=== PATIENT | female | born 1980 | race Caucasian/White ===

== ENCOUNTER 2017-07-07 00:22 | Day surgery (SDC) | payer OTHER ==
[2014-03-25 10:50] VITALS: Ht 162.6 cm; Wt 70.3 kg
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
[~2017-07-07] VITALS: Ht 162.6 cm; Wt 70.3 kg
[~2017-07-07 00:22] MED LIST: ACE3 PO; DOXY-179 PO; IBU600 PO; IBU800 PO; IBUP800T37 PO; KETO10TA PO; LOR5/325 PO; METR-1 PO; MOM PO; MULT-1335 PO; PER PO; PREN-127 PO; PREN-67 PO; RELACOR
[2017-07-07 06:11] VITALS: BP 111/72
[2017-07-07 06:14] LABS: PLATELET COUNT, AUTOMATED 330 K/uL (150-450)
[2017-07-07] MEDS ORDERED: FAMOTIDINE 20 MG TAB PO ONE (06:30)
[2017-07-07] MEDS ORDERED: LIDOCAINE/SOD BICARB 8.4% SYR ID ONE (06:30)
[2017-07-07] MEDS ORDERED: MIDAZOLAM 2 MG/2 ML VIAL IVP PRN (06:30)
[2017-07-07] MEDS ORDERED: cefOXitin/DEX(*) 2GM/50ML PREM 50 ML IVPB ONE (06:30)
[2017-07-07] MEDS ORDERED: NORMOSOL R SOLN(*) 1000 ML BAG 1,000 ML IV PRN (06:30)
[2017-07-07] MEDS ORDERED: CELECOXIB 200 MG CAP PO ONE (06:30)
[2017-07-07] MEDS ORDERED: ROPIVACAINE 0.2% 20 ML VIAL ONE (06:47)
[2017-07-07] MEDS ORDERED: fentaNYL CITR 100 MCG/2 ML AMP ONE ×3 (07:16→09:09)
[2017-07-07] MEDS ORDERED: LIDOCAINE MPF 1% 5 ML VIAL ONE (07:17)
[2017-07-07] MEDS ORDERED: PROPOFOL EMUL(*) 10MG/ML 20 ML 60 ML ONE (07:17)
[2017-07-07] MEDS ORDERED: DEXAMETHASONE SOD 4 MG/ML VIAL ONE (07:30)
[2017-07-07] MEDS ORDERED: ONDANSETRON 4 MG/2 ML VIAL ONE (07:31)
[2017-07-07] MEDS ORDERED: BUPIVACAIN 0.25% INJ 50ML VIAL ONE (07:32)
--- NOTE | 2017-07-07 07:34 | Post Operative Note ---
Operative Note - SENIOR ERP CONSULTANT Operative Day Date: July 07, 2017 Time: 07:52 Physicians Surgeon: PETER Anesthesia: ARNOLDO Diagnosis Pre-Op Diagnosis: SUBCUTANEOUS TISSUE MASS Post-Op Diagnosis: SAME Procedure Findings: RIGHT INNER THIGH CREASE MASS [id number] Procedure(s): EXCISIONAL BIOPSY Complications: 0 Fluids Fluids: 400 CC NR IV Estimated Blood Loss: MINIMAL Dictated Date OP Note Dictated: July 07, 2017 Time OP Note Dictated: 08:31 Copies to: CATRINA GREEN MD, JOHN MD July 07, 2017 07:34
[2017-07-07] MEDS ORDERED: IBUP800T37 PO (07:35)
[2017-07-07] MEDS ORDERED: HYDR2TAB4 PO (07:35)
--- NOTE | 2017-07-07 07:37 | OB/GYN Discharge Summary ---
Discharge Summary Reason for Hosp/Final Diag: (1) Mass of subcutaneous tissue Hospital Course & Plan: EXCISIONAL BIOPSY OF MASS PERFORMED NO COMPLICATIONS Weight (Pounds): 155 Result Diagram: 07/07/17604 Condition: Improved Discharge: Home, Self Intermediate Meds Active Scripts Ibuprofen (IBUPROFEN) 800 Mg Tablet, 1 TAB PO Q8H, #30 TAB 0 Refills Take with food every 8 hours. Prov:CATRINA ROMAN MD 07/07/17 Hydromorphone Hcl (HYDROMORPHONE HCL) 2 Mg Tablet, 2-4 MG PO Q4H for PAIN, #20 TAB 0 Refills Prov:CATRINA ROMAN MD 07/07/17 Ibuprofen (IBUPROFEN) 800 Mg Tablet, 1 TAB PO Q8H for pain, #40 TAB 0 Refills Prov:RIKY SOTO MD 03/26/14 Reported Medications Multivitamin With Minerals (MULTIPLE VITAMIN) 1 Each Tablet, 1 EACH PO DAILY, TAB 06/30/17 Discontinued Reported Medications Vits W-Ca,Fe,Fa(<1MG) ( Vitamin) 1 Tab Tablet, 1 TAB PO DAILY, 0 Refills 04/06/11 Discontinued Scripts Oxycodone/Acetaminophen (OXYCODONE/ACETAMINOPHEN 5MG/325 MG) 5 Mg/325 Mg Tab, 1- 2 TAB PO Q4H for pain, #30 TAB 0 Refills Prov:RIKY SOTO MD 03/26/14 Follow up with: Dr. Roman [phone] Follow up in: 6 wks PP or PO, 2 wks PO Discharge Diet: As Tolerates Discharge Activity: Pelvic Rest Copies to: CATRINA ROMAN MD, JOHN MD July 07, 2017 07:37
[2017-07-07] MEDS ORDERED: LR(*) 1000 ML BAG 1,000 ML IV ONE (08:21)
[2017-07-07] MEDS ORDERED: HYDROmorphone HCL 2 MG TAB PO PRN (08:25)
[2017-07-07] MEDS ORDERED: METOCLOPRAMIDE 10 MG/2 ML SDV IVP PRN (08:25)
[2017-07-07] MEDS ORDERED: IBUPROFEN 800 MG TAB PO SCH (09:00)
[2017-07-07 09:24] VITALS: BP 98/62
[2017-07-07 10:00] VITALS: BP 98/62
[2017-07-07 10:30] VITALS: BP 96/66
[2017-07-07 11:00] VITALS: BP 100/68
[2017-07-07 11:05] VITALS: BP 98/73
--- NOTE | 2017-07-07 14:59 | OPERATIVE REPORT 1 ---
EVENT DATE: July 07, 2017 SURGEON: Rocael Roman MD ANESTHESIOLOGIST: Cash Lisa MD ANESTHESIA: General. PREOPERATIVE DIAGNOSIS Subcutaneous tissue mass. POSTOPERATIVE DIAGNOSIS Subcutaneous tissue mass. PROCEDURE PERFORMED Excisional biopsy of the subcutaneous tissue mass of the right inner thigh. COMPLICATIONS None. FLUIDS Normosol 400 mL IV. ESTIMATED BLOOD LOSS Minimal. INDICATIONS Patient is a 37-year-old female with massive tissue on the right inner thigh that has become painful and inflamed with its location near her panty line, and it is worsened when she is sitting. Patient desired removal after discussion of risks and alternatives. FINDINGS A 2 cm mass in the right inner thigh crease which was sent to Pathology. DESCRIPTION OF PROCEDURE After informed consent was obtained, the patient was taken to the operating room with the IV running, placed in a supine position where general anesthesia was obtained without difficulty, placed in the [facility], examined, and she was noted to have the mass clearly evident on the right inner thigh. She was then prepped and draped in the usual fashion. The mass was delineated with a surgical marker, and a linear incision was made, later expanded to an elliptical incision to dissection of the mass. After the skin incision with the scalpel, both blunt and sharp dissection was used to dissect the fatty tissue mass out of the subcutaneous space. The initial portion of tissue did not contain the mass. The mass was deeper and was grasped with an Allis clamp and dissected with sharp dissection. Cautery was used for hemostasis. The subcutaneous space was then approximated with 2-0 Vicryl in an interrupted fashion, and the skin was closed with 4-0 Monocryl and Dermabond. The patient was taken out of [facility], awakened from anesthesia, and taken to the recovery room in stable condition. [email or web address]
== END 2017-07-07 09:24 | disposition home or self-care (01) ==
LOC: OR 00:22
PROVIDERS: ATTEND Obstetrics & Gynecology
DX: R22.41 Localized swelling, mass and lump, right lower limb (principal)
CPT/HCPCS: 27327; 36415; 84703; 85025; 88305; J0694; J1100; J2001; J2250; J2405; J2704; J2795; J3010; J3490

== ENCOUNTER 2017-07-10 10:18 | Emergency (ER) | payer OTHER ==
[2014-03-25 10:50] VITALS: Wt 70.8 kg
[~2017-07-10 10:18] MED LIST changes: +HYDR2TAB4 PO
--- NOTE | 2017-07-10 10:21 | ER Report ---
History and Physical Time Seen By MD: 10:20 HPI/ROS CHIEF COMPLAINT: Vomiting/Dizziness HISTORY OF PRESENT ILLNESS: Patient is a 37-year-old female who had sudden onset of vertigo approximately 30 minutes prior to presentation. She states that any movement makes the symptoms worsen. Symptoms came on suddenly. She denies any difficulty with speech. Does report severe nausea but has not vomited yet. She denies any chest pain or abdominal pain. She denies headache, she denies tinnitus, she denies any upper respiratory infectious type symptoms. Patient was recently seen by her OB doctor for removal of a lipoma that was in the groin area and rubbing against her underwear. This occurred on July 07 she was followed up the following day because of some concerns of redness to the surgical site and started on Augmentin. She denies any discharge from the incision site at this time but does report discomfort and some pain. REVIEW OF SYSTEMS: Constitutional: No fever, no chills. Eyes: No discharge. No double vision ENT: No sore throat. Cardiovascular: No chest pain, no palpitations. Respiratory: No cough, no shortness of breath. Gastrointestinal: Severe nausea but no vomiting or abdominal pain Genitourinary: No hematuria. Musculoskeletal: No back pain. Skin: No rashes. Neurological: No headache. Vertigo Allergies: Coded Allergies: No Known Allergies (Verified Allergy, Mild, 04/06/11) Home Meds Active Scripts Diazepam (VALIUM) 5 Mg Tablet, 5 MG PO 2-3XD for vertigo, #10 TAB 0 Refills Prov:SANTIAGO ROBLEDO MD 07/10/17 Ibuprofen (IBUPROFEN) 800 Mg Tablet, 1 TAB PO Q8H, #30 TAB 0 Refills Take with food every 8 hours. Prov:CATRINA GREEN MD 07/07/17 Hydromorphone Hcl (HYDROMORPHONE HCL) 2 Mg Tablet, 2-4 MG PO Q4H for PAIN, #20 TAB 0 Refills Prov:CATRINA GREEN MD 07/07/17 Reported Medications Tramadol Hcl (TRAMADOL HCL) 50 Mg Tablet, 50-100 MG PO Q4-6H, TAB 07/10/17 Amoxicillin/Pot Clav 875-125 Mg Tab (AUGMENTIN 875-125 TABLET) 1 Each Tablet, 1 TAB PO Q12H, TAB 07/10/17 Multivitamin With Minerals (MULTIPLE VITAMIN) 1 Each Tablet, 1 EACH PO DAILY, TAB 06/30/17 Discontinued Scripts Ibuprofen (IBUPROFEN) 800 Mg Tablet, 1 TAB PO Q8H for pain, #40 TAB 0 Refills Prov:RIKY SOTO MD 03/26/14 Past Medical/Surgical History Noncontributory Hx Smoking: No Smoking Status: Never Smoker Exposure to Second Hand Smoke?: No Hx Substance Use Disorder: No Hx Alcohol Use: No Constitutional Vital Sign - Last 24 Hours 07/10/17 07/10/17 07/10/17 07/10/17 10:23 10:24 10:24 10:30 Temp 98.2 Pulse 79 Resp 16 B/P (MAP) 126/79 126/79 (95) 126/79 (95) 120/84 (96) Pulse Ox 98 O2 Delivery Room Air 07/10/17 07/10/17 07/10/17 07/10/17 10:30 10:33 10:33 10:48 Pulse 77 77 82 B/P (MAP) 120/84 (96) Pulse Ox 99 99 100 07/10/17 07/10/17 07/10/17 07/10/17 10:48 11:03 11:03 11:18 Pulse 82 78 78 73 B/P (MAP) 113/59 (77) Pulse Ox 100 99 99 96 07/10/17 07/10/17 07/10/17 07/10/17 11:30 11:33 11:36 11:47 Pulse 86 Resp 20 B/P (MAP) 102/67 (79) 101/69 (80) O2 Flow Rate 2.0 07/10/17 07/10/17 07/10/17 07/10/17 11:48 12:00 12:03 12:08 Pulse 64 75 82 Resp 6 9 36 B/P (MAP) 104/71 (82) Pulse Ox 96 98 97 07/10/17 07/10/17 12:30 12:38 Pulse 71 Resp 14 B/P (MAP) 111/73 (86) Pulse Ox 97 Physical Exam General/Constitutional: Patient is awake, alert, nontoxic and in no acute respiratory distress. Head: Normocephalic and atraumatic. Eyes: Conjunctival clear, Pupils are equal and reactive to light. Extraocular muscles are intact and symmetrical. He does seem to have fatigable nystagmus on exam that is horizontal. Sclera are clear and anicteric. Ears:External canals are clear. Tympanic membranes are clear with normal landmarks and light reflex. Nares: No rhinorrhea or bleeding. Turbinates are pink and moist. Oropharyngeal: Mucous membranes are moist. There is no pharyngeal erythema or exudate. There are no palatal petechiae. Uvula is midline and symmetrical. Neck: Supple, no adenopathy. Cardiovascular: Heart is regular rate and rhythm without audible murmurs, rubs or gallops. Pulmonary: Lungs are clear to auscultation bilaterally. There are no wheezes, rales, or rhonchi. Chest rise is symmetrical Abdomen: Soft, nontender, no guarding or peritoneal signs. Extremities: No gross deformities, No peripheral cyanosis. Able to move all 4 extremities. Neuro: Alert and oriented X3, Cranial nerves 2 thru 12 are intact and symmetrical. Patient has normal gait. Skin: Surgical incision site reveals mild ecchymosis no surrounding erythema that I can see and no expressible discharge. Medical Decision Making Data Points Result Diagram: 07/10/17 1109 07/10/17 1109 Laboratory Hematology Test 07/10/17 11:09 07/10/17 11:38 Red Blood Count 4.34 M/uL (4.17-5.56) Mean Corpuscular Volume 92.0 fL (80.0-96.0) Mean Corpuscular Hemoglobin 32.7 pg (26.0-33.0) Mean Corpuscular Hemoglobin Concent 35.5 g/dL (32.0-36.0) Red Cell Distribution Width 12.2 % (11.5-14.5) Mean Platelet Volume 8.3 fL (7.2-11.1) Neutrophils (%) (Auto) 66.9 % (39.4-72.5) Lymphocytes (%) (Auto) 22.4 % (17.6-49.6) Monocytes (%) (Auto) 5.9 % (4.1-12.4) Eosinophils (%) (Auto) 4.3 % (0.4-6.7) Basophils (%) (Auto) 0.5 % (0.3-1.4) Nucleated RBC Relative Count (auto) 0.0 /100WBC Neutrophils # (Auto) 5.5 K/uL (2.0-7.4) Lymphocytes # (Auto) 1.8 K/uL (1.3-3.6) Monocytes # (Auto) 0.5 K/uL (0.3-1.0) Eosinophils # (Auto) 0.4 K/uL (0.0-0.5) Basophils # (Auto) 0.0 K/uL (0.0-0.1) Nucleated RBC Absolute Count (auto) 0.00 K/uL Sodium Level 137 mmol/L (137-145) Potassium Level 3.7 mmol/L (3.5-5.0) Chloride Level 104 mmol/L (98-107) Carbon Dioxide Level 21 mmol/L (22-31) Blood Urea Nitrogen 6 mg/dl (7-18) Creatinine 0.80 mg/dl (0.52-1.04) Glomerular Filtration Rate Calc > 60.0 Random Glucose 94 mg/dl (75-110) Calcium Level 9.0 mg/dl (8.4-10.2) Total Bilirubin 0.8 mg/dl (0.2-1.3) Aspartate Amino Transf (AST/SGOT) 22 U/L (0-35) Alanine Aminotransferase (ALT/SGPT) 19 U/L (0-56) Alkaline Phosphatase 58 U/L (0-126) Total Protein 6.3 gm/dl (6.3-8.2) Albumin 3.6 g/dl (3.5-5.0) Human Chorionic Gonadotropin, Qual Negative (NEGATIVE) Urine Color Yellow Urine Clarity Clear Urine pH 7.0 pH (4.8-9.5) Urine Specific [place] 1.011 Urine Protein Negative mg/dL (NEGATIVE) Urine Glucose (UA) Negative mg/dL (NEGATIVE) Urine Ketones Negative mg/dL (NEGATIVE) Urine Blood Negative (NEGATIVE) Urine Nitrite Negative (NEGATIVE) Urine Bilirubin Negative (NEGATIVE) Urine Urobilinogen Negative mg/dL (0.2-1.9) Urine Leukocyte Esterase Negative (NEGATIVE) Urine RBC None /HPF (0-2/HPF) Urine WBC None /HPF (0-5/HPF) Urine Squamous Epithelial Cells Many /LPF (</=FEW) Urine Bacteria Few /HPF (NONE-FEW) Urine Mucus None /HPF (NONE-FEW) Chemistry Test 07/10/17 11:09 07/10/17 11:38 White Blood Count 8.2 k/uL (4.5-11.0) Red Blood Count 4.34 M/uL (4.17-5.56) Hemoglobin 14.2 g/dL (12.0-16.0) Hematocrit 40.0 % (34.0-47.0) Mean Corpuscular Volume 92.0 fL (80.0-96.0) Mean Corpuscular Hemoglobin 32.7 pg (26.0-33.0) Mean Corpuscular Hemoglobin Concent 35.5 g/dL (32.0-36.0) Red Cell Distribution Width 12.2 % (11.5-14.5) Platelet Count 291 K/uL (150-450) Mean Platelet Volume 8.3 fL (7.2-11.1) Neutrophils (%) (Auto) 66.9 % (39.4-72.5) Lymphocytes (%) (Auto) 22.4 % (17.6-49.6) Monocytes (%) (Auto) 5.9 % (4.1-12.4) Eosinophils (%) (Auto) 4.3 % (0.4-6.7) Basophils (%) (Auto) 0.5 % (0.3-1.4) Nucleated RBC Relative Count (auto) 0.0 /100WBC Neutrophils # (Auto) 5.5 K/uL (2.0-7.4) Lymphocytes # (Auto) 1.8 K/uL (1.3-3.6) Monocytes # (Auto) 0.5 K/uL (0.3-1.0) Eosinophils # (Auto) 0.4 K/uL (0.0-0.5) Basophils # (Auto) 0.0 K/uL (0.0-0.1) Nucleated RBC Absolute Count (auto) 0.00 K/uL Glomerular Filtration Rate Calc > 60.0 Calcium Level 9.0 mg/dl (8.4-10.2) Total Bilirubin 0.8 mg/dl (0.2-1.3) Aspartate Amino Transf (AST/SGOT) 22 U/L (0-35) Alanine Aminotransferase (ALT/SGPT) 19 U/L (0-56) Alkaline Phosphatase 58 U/L (0-126) Total Protein 6.3 gm/dl (6.3-8.2) Albumin 3.6 g/dl (3.5-5.0) Human Chorionic Gonadotropin, Qual Negative (NEGATIVE) Urine Color Yellow Urine Clarity Clear Urine pH 7.0 pH (4.8-9.5) Urine Specific [place] 1.011 Urine Protein Negative mg/dL (NEGATIVE) Urine Glucose (UA) Negative mg/dL (NEGATIVE) Urine Ketones Negative mg/dL (NEGATIVE) Urine Blood Negative (NEGATIVE) Urine Nitrite Negative (NEGATIVE) Urine Bilirubin Negative (NEGATIVE) Urine Urobilinogen Negative mg/dL (0.2-1.9) Urine Leukocyte Esterase Negative (NEGATIVE) Urine RBC None /HPF (0-2/HPF) Urine WBC None /HPF (0-5/HPF) Urine Squamous Epithelial Cells Many /LPF (</=FEW) Urine Bacteria Few /HPF (NONE-FEW) Urine Mucus None /HPF (NONE-FEW) Urinalysis Test 07/10/17 11:38 Urine Color Yellow Urine Clarity Clear Urine pH 7.0 pH (4.8-9.5) Urine Specific [place] 1.011 Urine Protein Negative mg/dL (NEGATIVE) Urine Glucose (UA) Negative mg/dL (NEGATIVE) Urine Ketones Negative mg/dL (NEGATIVE) Urine Blood Negative (NEGATIVE) Urine Nitrite Negative (NEGATIVE) Urine Bilirubin Negative (NEGATIVE) Urine Urobilinogen Negative mg/dL (0.2-1.9) Urine Leukocyte Esterase Negative (NEGATIVE) Urine RBC None /HPF (0-2/HPF) Urine WBC None /HPF (0-5/HPF) Urine Squamous Epithelial Cells Many /LPF (</=FEW) Urine Bacteria Few /HPF (NONE-FEW) Urine Mucus None /HPF (NONE-FEW) EKG/Imaging EKG Interpretation EKG shows normal sinus rhythm with ventricular rate of 81 bpm. Monitor Interpretation: Normal Sinus Rhythm Imaging FACILITY: [facility] PATIENT NAME: Mary Jewell : 1980 MR: [id number] V: [id number] EXAM DATE: ORDERING PHYSICIAN: SANTIAGO ROBLEDO TECHNOLOGIST: Location: [facility] [place] Patient: Mary Jewell : 1980 Visit/Account:[id number] Date of Sevice: 07/10/2017 EXAMINATION: CT HEAD WITHOUT CONTRAST COMPARISON: None available HISTORY: vertigo PROCEDURE: Noncontrast CT from the vertex through the skull base. One of the following dose optimization techniques was utilized in the performance of this exam: Automated exposure control; adjustment of the mA and/or kV according to the patient's size; or use of an iterative reconstruction technique. Specific details can be referenced in the facility's radiology CT exam operational policy. FINDINGS: Brain volume: Age-appropriate. Hemorrhage/extra-axial fluid: None. Mass effect/midline shift/edema: None. Ischemia: Mcmahan-white differentiation is preserved. Ventricles and basal cisterns: Within normal limits. Posterior fossa: Negative. Vessels: Negative. Calvarium, skull base, and scalp: Negative. Visualized sinuses and orbits: Within normal limits. IMPRESSION: Negative age-appropriate noncontrast head CT. Report Dictated By: Ernie Mercado MD at 07/10/2017 12:34 PM Report E-Signed By: Ernie Mercado MD at 07/10/2017 12:36 PM WSN:[id number] Course/Re-evaluation Clinical Indication for ER IV: Hydration, IV Access ED Course 07/10/2017 11:33:38 am patient with positional vertigo. Awaiting IV Valium to administer the patient. She had no relief after approximately 800 mL of fluid and 25 mg of meclizine. We are also administering 1 g of IV Rocephin just for additional coverage for suspected surgical infection. We will perform CT scan of the head for vertigo Re-evaluation 07/10/2017 12:05:30 pm patient improved at this time after IV Valium awaiting results of CT scan Decision to Disposition Date: July 10, 2017 Decision to Disposition Time: 12:44 Depart Departure Latest Vital Signs Vital Signs Date Time Temp Pulse Resp B/P (MAP) Pulse Ox O2 Delivery O2 Flow Rate FiO2 07/10/17 12:38 71 14 97 07/10/17 12:30 111/73 (86) 07/10/17 11:36 2.0 07/10/17 10:23 98.2 Room Air Impression: Primary Impression: Benign paroxysmal positional vertigo Condition: Improved Disposition: HOME OR SELF-CARE Referrals: CINDY REESE MD (PCP) New Scripts Diazepam (VALIUM) 5 Mg Tablet 5 MG PO 2-3XD for vertigo, #10 TAB 0 Refills Prov: SANTIAGO ROBLEDO MD 07/10/17 Patient Instructions: Benign Paroxysmal Positional Vertigo (ED) Additional Instructions: Continue your antibiotics as directed until complete. Follow-up with Dr. Green as directed Take your next dose of Augmentin this evening Problem Qualifiers Primary Impression: Benign paroxysmal positional vertigo Laterality: unspecified laterality Qualified Codes: H81.10 - Benign paroxysmal vertigo, unspecified ear SANTIAGO ROBLEDO MD July 10, 2017 10:21
[2017-07-10] MEDS ORDERED: AMOX-559 PO (10:31)
[2017-07-10] MEDS ORDERED: TRAM-420 PO (10:31)
[2017-07-10] MEDS ORDERED: NS(*) 0.9% 1000 ML BAG 1,000 ML IV ONE (10:33)
[2017-07-10] MEDS ORDERED: MECLIZINE HCL 25 MG TAB PO ONE (10:35)
[2017-07-10] MEDS ORDERED: DIAZEPAM 50 MG/10 ML MDV IVP ONE (10:35)
[2017-07-10] MEDS ORDERED: cefTRIAXone 1 GM VIAL IVP ONE (10:35)
--- NOTE | 2017-07-10 10:55 | EKG ---
[place] [facility] [place] NAME: JAKOB JACKSON : [id number] MR: [id number] V: [id number] EXAM DATE: ORDERING PHYSICIAN: SANTIAGO ROBLEDO TECHNOLOGIST: MARQUES Test Reason : DIZZY Blood Pressure : / mmHG Vent. Rate : 081 BPM Atrial Rate : 081 BPM P-R Int : 166 ms QRS Dur : 090 ms QT Int : 384 ms P-R-T Axes : 021 048 053 degrees QTc Int : 446 ms Sinus rhythm No acute appearing findings No previous ECGs available Confirmed by MONSE LEI ([id number]) on 07/10/2017 2:03:55 PM Referred By: LINDSAY Confirmed By:MONSE LEI
[2017-07-10 11:19] LABS: PLATELET COUNT, AUTOMATED 291 K/uL (150-450)
[2017-07-10] MEDS ORDERED: DIA5 PO (12:29)
[2017-07-10 12:30] VITALS: BP 111/73
--- NOTE | 2017-07-10 12:40 | RADIOLOGY IMAGING REPORT ---
[place] [facility] [place] NAME: Mary Jewell : 1980 MR: [id number] V: [id number] EXAM DATE: ORDERING PHYSICIAN: SANTIAGO ROBLEDO [place]CHN[place] [facility] [place] : 1980 Visit/Account:[id number] Date of Sevice: 07/10/2017 EXAMINATION: CT HEAD WITHOUT CONTRAST COMPARISON: None available HISTORY: vertigo PROCEDURE: Noncontrast CT from the vertex through the skull base. One of the following dose optimizat ion techniques was utilized in the performance of this exam: Automated exposure control; adjustment o f the mA and/or kV according to the patient's size; or use of an iterative reconstruction technique. Specific details can be referenced in the facility's radiology CT exam operational policy. FINDINGS: Brain volume: Age-appropriate. Hemorrhage/extra-axial fluid: None. Mass effect/midline shift/edema: None. Ischemia: Mcmahan-white differentiation is preserved. Ventricles and basal cisterns: Within normal limits. Posterior fossa: Negative. Vessels: Negative. Calvarium, skull base, and scalp: Negative. Visualized sinuses and orbits: Within normal limits. IMPRESSION: Negative age-appropriate noncontrast head CT. Report Dictated By: Ernie Mercado MD at 07/10/2017 12:34 PM Report E-Signed By: Ernie Mercado MD at 07/10/2017 12:36 PM WSN:[id number]
== END 2017-07-10 13:14 | disposition home or self-care (01) ==
LOC: ER 10:20
DX: H81.10 Benign paroxysmal vertigo, unspecified ear (principal)
CPT/HCPCS: 70450; 81001; 84703; 85025; 93005; 96361; 96374; 96375; 99284; J0696; J3360; J7030; J8597; 82040; 82247; 82310; 82374; 82435; 82565; 82947; 84075; 84132; 84155; 84295; 84450; 84460; 84520

== ENCOUNTER → 2017-12-19 | Outpatient (REF) | payer OTHER ==
[2014-03-25 10:50] VITALS: BMI 35.7
[~2017-12-19] MED LIST changes: +AMOX-559 PO; +DIA5 PO; +TRAM-420 PO
[2017-12-19 13:57] LABS: PLATELET COUNT, AUTOMATED 368 K/uL (150-450)
[2017-12-19 14:37] LABS: INR 0.99
== END ==
PROVIDERS: ATTEND Family Medicine
DX: R10.31 Right lower quadrant pain (principal)
CPT/HCPCS: 82040; 82247; 82310; 82374; 82435; 82565; 82947; 84075; 84132; 84155; 84295; 84450; 84460; 84520; 85025; 85610; 86140

== ENCOUNTER → 2017-12-19 | Outpatient (CLI) | payer OTHER ==
[2014-03-25 10:50] VITALS: BMI 35.7
[~2017-12-19] MED LIST changes: +IOPAMIDOL 76% 75 ML INFUS BTL 75 ML ONE
--- NOTE | 2017-12-19 14:31 | RADIOLOGY IMAGING REPORT ---
FACILITY: [facility] - [place] PATIENT NAME: Mary Jewell : 1980 MR: [id number] V: [id number] EXAM DATE: ORDERING PHYSICIAN: NAN HERNANEDZ TECHNOLOGIST: Location: [facility] Patient: Mary Jewell : 1980 Visit/Account:[id number] Date of Sevice: 12/19/2017 CT abdomen and pelvis with IV contrast Indication: Abdominal pain. Right lower abdominal pain. Comparison: None available. . Technique: Axial CT images were obtained through the abdomen and pelvis during injection of nonioni c iodinated intravenous contrast. Reformatted coronal and sagittal images were also obtained. One of the following dose optimization techniques was utilized in the performance of this exam: Autom ated exposure control; adjustment of the mA and/or kV according to the patient's size; or use of an i terative reconstruction technique. Specific details can be referenced in the facility's radiology C T exam operational policy. Contrast: 75 ml of Isovue-370 IV contrast. Findings: Lower lung hebert: Limited views lower lung field are unremarkable. Liver: No focal parenchymal abnormality of the liver. Biliary: Status post cholecystectomy. Biliary system is unremarkable. Pancreas: No acute abnormality. Spleen: Normal appearance. Adrenal glands: Unremarkable. Kidneys / retroperitoneum: The right kidney does show 2 mm stone collecting system without hydronephr osis. Left kidney shows no stone or hydronephrosis. No discrete renal lesions. Bowel / peritoneum / mesenteries: The colon shows no focal normality. The appendix is short. The pr oximal appendix is mildly dilated at 1 cm. No intraluminal abnormality. The distal appendix appears normal. There is no surrounding inflammation or fluid. Small bowel shows no focal abnormality or o bstruction. The stomach is unremarkable. Tiny bit of free fluid seen in pelvis likely physiologic. No free air, fluid collections or areas of inflammation. Small umbilical hernia containing fat. Lymph node assessment: No pathologic adenopathy identified. Pelvic structures: Right ovary does show a mildly complex 2 cm cyst. The remaining pelvic structu res visualized within normal limits. Vessels: No significant atherosclerotic calcifications seen throughout a nonaneurysmal abdominal aort a and branches. Musculoskeletal / Body wall: No acute or aggressive osseous abnormality. Mild degenerative changes s pine. IMPRESSION: 1. The appendix is short. The proximal appendix is mildly dilated and thickened however shows no in flammation or other focal abnormality to suggest acute appendicitis. This could be normal for the pa tient versus very early appendicitis. However is equivocal on this exam. Suggest clinical correlati on. 2. The right ovary shows a 2 cm mildly hemorrhagic cyst. 3. Nonobstructing right renal calculi. I called report to NAN HERNANDEZ at 12/19/2017 2:25 PM. Report Dictated By: Oren Arredondo at 12/19/2017 2:14 PM Report E-Signed By: Oren Arredondo at 12/19/2017 2:27 PM WSN:[id number]
== END ==
LOC: CT 13:22
PROVIDERS: ATTEND Family Medicine
DX: N20.0 Calculus of kidney (principal); N83.201 Unspecified ovarian cyst, right side
CPT/HCPCS: 74177; Q9967

== ENCOUNTER 2017-12-20 10:56 | Observation (INO) | payer OTHER ==
[2017-12-20] VITALS (11 sets, daily range): BP systolic 101–121; BP diastolic 66–85
[~2017-12-20] VITALS: Ht 162.6 cm; Wt 65.9 kg
[~2017-12-20 10:56] MED LIST changes: -IOPAMIDOL 76% 75 ML INFUS BTL 75 ML ONE
[2017-12-20] MEDS ORDERED: ONDANSETRON 4 MG/2 ML VIAL IVP ONE (11:25)
[2017-12-20] MEDS ORDERED: MORPHINE 4 MG/ML SDV IVP ONE ×2 (11:25→13:15)
[2017-12-20] MEDS ORDERED: NS(*) 0.9% 1000 ML BAG 1,000 ML IV ONE (11:25)
--- NOTE | 2017-12-20 11:31 | ER Report ---
History and Physical Time Seen By MD: 11:15 Hx. of Stated Complaint: pt has had RLQ abd pain since wednesday. Was seen at urgent care, and had a ct scan that showed a dilated appendix, an ovarian cyst and a kidney stone. Pain has not changed HPI/ROS CHIEF COMPLAINT: Right lower quadrant abdominal pain HISTORY OF PRESENT ILLNESS: Patient is a 37-year-old female who is . Who presents to the emergency department for persistent right lower quadrant abdominal pain. Currently 4 out of 10 in intensity after some ibuprofen this morning. Patient was seen yesterday around 3 PM at urgent care and had a workup for right lower quadrant abdominal pain which included blood work as well as a CT scan of the abdomen and pelvis. There was some note of thickening of the appendix without inflammatory changes and normal blood work at that time patient has been afebrile. Patient was supposed to follow-up in the emergency department at 9 PM for repeat exam and blood work. There apparently was a miscommunication with the front attendant. She told them at the front attendant last evening that she was supposed to have repeat blood work but there was "no order for blood work. Patient did not realize that she was supposed to check into the emergency department to have a reevaluation along with blood work. Patient now presents because of persistent pain. She denies fevers or chills. She does report some nausea without vomiting. Her last meal was some Jell-O this morning. Patient denies dysuria or vaginal bleeding or discharge. REVIEW OF SYSTEMS: Constitutional: No fever, no chills. Eyes: No discharge. ENT: No sore throat. Cardiovascular: No chest pain, no palpitations. Respiratory: No cough, no shortness of breath. Gastrointestinal: Right lower quadrant abdominal pain, anorexia, nausea no vomiting no diarrhea no blood in the stool no hematemesis. Genitourinary: No hematuria. Musculoskeletal: No back pain. Skin: No rashes. Neurological: No headache. Allergies: Coded Allergies: tramadol (Verified Allergy, Unknown, 12/20/17) Home Meds Reported Medications Multivitamin With Minerals (MULTIPLE VITAMIN) 1 Each Tablet, 1 EACH PO DAILY, TAB 06/30/17 Discontinued Reported Medications Tramadol Hcl (TRAMADOL HCL) 50 Mg Tablet, 50-100 MG PO Q4-6H, TAB 07/10/17 Amoxicillin/Pot Clav 875-125 Mg Tab (AUGMENTIN 875-125 TABLET) 1 Each Tablet, 1 TAB PO Q12H, TAB 07/10/17 Discontinued Scripts Diazepam (VALIUM) 5 Mg Tablet, 5 MG PO 2-3XD for vertigo, #10 TAB 0 Refills Prov:SANTIAGO ROBLEDO MD 07/10/17 Ibuprofen (IBUPROFEN) 800 Mg Tablet, 1 TAB PO Q8H, #30 TAB 0 Refills Take with food every 8 hours. Prov:CATRINA GREEN MD 07/07/17 Hydromorphone Hcl (HYDROMORPHONE HCL) 2 Mg Tablet, 2-4 MG PO Q4H for PAIN, #20 TAB 0 Refills Prov:CATRINA GREEN MD 07/07/17 Past Medical/Surgical History Noncontributory towards the chief complaint Hx Smoking: No Smoking Status: Never Smoker Exposure to Second Hand Smoke?: No Hx Substance Use Disorder: No Hx Alcohol Use: No Constitutional Vital Sign - Last 24 Hours 12/20/17 12/20/17 12/20/17 12/20/17 11:01 11:03 11:11 11:20 Temp 98.8 Pulse 67 Resp 20 B/P (MAP) 107/78 107/78 (88) 112/74 (87) Pulse Ox 94 96 O2 Delivery Room Air 12/20/17 12/20/17 12/20/17 12/20/17 11:26 11:30 11:41 11:56 Pulse 68 69 67 B/P (MAP) 111/68 (82) Pulse Ox 98 88 12/20/17 12/20/17 12/20/17 12/20/17 12:00 12:11 12:26 12:30 Pulse 64 75 B/P (MAP) 113/79 (90) 106/81 (89) Pulse Ox 92 100 12/20/17 12:41 Pulse 68 Pulse Ox 99 Physical Exam General/Constitutional: Patient is awake, alert, nontoxic and in no acute respiratory distress. Head: Normocephalic and atraumatic. Eyes: Conjunctival clear, Pupils are equal and reactive to light. Extraocular muscles are intact and symmetrical. Sclera are clear and anicteric. Ears:External canals are clear. Tympanic membranes are clear with normal landmarks and light reflex. Nares: No rhinorrhea or bleeding. Turbinates are pink and moist. Oropharyngeal: Mucous membranes are moist. There is no pharyngeal erythema or exudate. There are no palatal petechiae. Uvula is midline and symmetrical. Neck: Supple, no adenopathy. Cardiovascular: Heart is regular rate and rhythm without audible murmurs, rubs or gallops. Pulmonary: Lungs are clear to auscultation bilaterally. There are no wheezes, rales, or rhonchi. Chest rise is symmetrical Abdomen: Nondistended. Tenderness at McBurney's point without true peritoneal signs. No tenderness to percussion negative Rosing sign Extremities: No gross deformities, No peripheral cyanosis. Able to move all 4 extremities. Neuro: Alert and oriented X3, Skin: No rashes, skin is warm dry and well perfused. Medical Decision Making Data Points Result Diagram: 12/20/17 1120 12/20/17 1120 Laboratory Hematology Test 12/20/17 11:14 12/20/17 11:20 Urine Color Yellow Urine Clarity Clear Urine pH 5.0 pH (4.8-9.5) Urine Specific [place] 1.008 Urine Protein Negative mg/dL (NEGATIVE) Urine Glucose (UA) Negative mg/dL (NEGATIVE) Urine Ketones Negative mg/dL (NEGATIVE) Urine Blood Negative (NEGATIVE) Urine Nitrite Negative (NEGATIVE) Urine Bilirubin Negative (NEGATIVE) Urine Urobilinogen Negative mg/dL (0.2-1.9) Urine Leukocyte Esterase Negative (NEGATIVE) Urine RBC <1 /HPF (0-2/HPF) Urine WBC <1 /HPF (0-5/HPF) Urine Squamous Epithelial Cells Moderate /LPF (</=FEW) Urine Bacteria Negative /HPF (NONE-FEW) Urine Mucus None /HPF (NONE-FEW) Red Blood Count 4.85 M/uL (4.17-5.56) Mean Corpuscular Volume 95.2 fL (80.0-96.0) Mean Corpuscular Hemoglobin 32.6 pg (26.0-33.0) Mean Corpuscular Hemoglobin Concent 34.3 g/dL (32.0-36.0) Red Cell Distribution Width 12.5 % (11.5-14.5) Mean Platelet Volume 7.6 fL (7.2-11.1) Neutrophils (%) (Auto) 57.0 % (39.4-72.5) Lymphocytes (%) (Auto) 35.6 % (17.6-49.6) Monocytes (%) (Auto) 4.1 % (4.1-12.4) Eosinophils (%) (Auto) 2.3 % (0.4-6.7) Basophils (%) (Auto) 1.0 % (0.3-1.4) Nucleated RBC Relative Count (auto) 0.0 /100WBC Neutrophils # (Auto) 3.7 K/uL (2.0-7.4) Lymphocytes # (Auto) 2.3 K/uL (1.3-3.6) Monocytes # (Auto) 0.3 K/uL (0.3-1.0) Eosinophils # (Auto) 0.2 K/uL (0.0-0.5) Basophils # (Auto) 0.1 K/uL (0.0-0.1) Nucleated RBC Absolute Count (auto) 0.00 K/uL Sodium Level 138 mmol/L (137-145) Potassium Level 4.1 mmol/L (3.5-5.0) Chloride Level 102 mmol/L (98-107) Carbon Dioxide Level 25 mmol/L (22-31) Blood Urea Nitrogen 7 mg/dl (7-18) Creatinine 0.80 mg/dl (0.52-1.04) Glomerular Filtration Rate Calc > 60.0 Random Glucose 90 mg/dl (75-110) Calcium Level 9.5 mg/dl (8.4-10.2) Total Bilirubin 0.8 mg/dl (0.2-1.3) Aspartate Amino Transf (AST/SGOT) 30 U/L (0-35) Alanine Aminotransferase (ALT/SGPT) 22 U/L (0-56) Alkaline Phosphatase 54 U/L (0-126) C-Reactive Protein 2.7 mg/dl (<1.0) Total Protein 7.7 g/dl (6.3-8.2) Albumin 4.6 g/dl (3.5-5.0) Lipase 95 U/L (23-300) Human Chorionic Gonadotropin, Qual Negative (NEGATIVE) Helicobacter pylori IgG Antibody Negative (NEGATIVE) Chemistry Test 12/20/17 11:14 12/20/17 11:20 Urine Color Yellow Urine Clarity Clear Urine pH 5.0 pH (4.8-9.5) Urine Specific [place] 1.008 Urine Protein Negative mg/dL (NEGATIVE) Urine Glucose (UA) Negative mg/dL (NEGATIVE) Urine Ketones Negative mg/dL (NEGATIVE) Urine Blood Negative (NEGATIVE) Urine Nitrite Negative (NEGATIVE) Urine Bilirubin Negative (NEGATIVE) Urine Urobilinogen Negative mg/dL (0.2-1.9) Urine Leukocyte Esterase Negative (NEGATIVE) Urine RBC <1 /HPF (0-2/HPF) Urine WBC <1 /HPF (0-5/HPF) Urine Squamous Epithelial Cells Moderate /LPF (</=FEW) Urine Bacteria Negative /HPF (NONE-FEW) Urine Mucus None /HPF (NONE-FEW) White Blood Count 6.6 k/uL (4.5-11.0) Red Blood Count 4.85 M/uL (4.17-5.56) Hemoglobin 15.8 g/dL (12.0-16.0) Hematocrit 46.1 % (34.0-47.0) Mean Corpuscular Volume 95.2 fL (80.0-96.0) Mean Corpuscular Hemoglobin 32.6 pg (26.0-33.0) Mean Corpuscular Hemoglobin Concent 34.3 g/dL (32.0-36.0) Red Cell Distribution Width 12.5 % (11.5-14.5) Platelet Count 380 K/uL (150-450) Mean Platelet Volume 7.6 fL (7.2-11.1) Neutrophils (%) (Auto) 57.0 % (39.4-72.5) Lymphocytes (%) (Auto) 35.6 % (17.6-49.6) Monocytes (%) (Auto) 4.1 % (4.1-12.4) Eosinophils (%) (Auto) 2.3 % (0.4-6.7) Basophils (%) (Auto) 1.0 % (0.3-1.4) Nucleated RBC Relative Count (auto) 0.0 /100WBC Neutrophils # (Auto) 3.7 K/uL (2.0-7.4) Lymphocytes # (Auto) 2.3 K/uL (1.3-3.6) Monocytes # (Auto) 0.3 K/uL (0.3-1.0) Eosinophils # (Auto) 0.2 K/uL (0.0-0.5) Basophils # (Auto) 0.1 K/uL (0.0-0.1) Nucleated RBC Absolute Count (auto) 0.00 K/uL Glomerular Filtration Rate Calc > 60.0 Calcium Level 9.5 mg/dl (8.4-10.2) Total Bilirubin 0.8 mg/dl (0.2-1.3) Aspartate Amino Transf (AST/SGOT) 30 U/L (0-35) Alanine Aminotransferase (ALT/SGPT) 22 U/L (0-56) Alkaline Phosphatase 54 U/L (0-126) C-Reactive Protein 2.7 mg/dl (<1.0) Total Protein 7.7 g/dl (6.3-8.2) Albumin 4.6 g/dl (3.5-5.0) Lipase 95 U/L (23-300) Human Chorionic Gonadotropin, Qual Negative (NEGATIVE) Helicobacter pylori IgG Antibody Negative (NEGATIVE) Urinalysis Test 12/20/17 11:14 Urine Color Yellow Urine Clarity Clear Urine pH 5.0 pH (4.8-9.5) Urine Specific [place] 1.008 Urine Protein Negative mg/dL (NEGATIVE) Urine Glucose (UA) Negative mg/dL (NEGATIVE) Urine Ketones Negative mg/dL (NEGATIVE) Urine Blood Negative (NEGATIVE) Urine Nitrite Negative (NEGATIVE) Urine Bilirubin Negative (NEGATIVE) Urine Urobilinogen Negative mg/dL (0.2-1.9) Urine Leukocyte Esterase Negative (NEGATIVE) Urine RBC <1 /HPF (0-2/HPF) Urine WBC <1 /HPF (0-5/HPF) Urine Squamous Epithelial Cells Moderate /LPF (</=FEW) Urine Bacteria Negative /HPF (NONE-FEW) Urine Mucus None /HPF (NONE-FEW) EKG/Imaging Imaging FACILITY: [facility] - [place] PATIENT NAME: Mary Jewell : 1980 MR: [id number] V: [id number] EXAM DATE: ORDERING PHYSICIAN: SANTIAGO ROBLEDO TECHNOLOGIST: Location: [facility] - [place] Patient: Mary Jewell : 1980 Visit/Account:[id number] Date of Sevice: 12/20/2017 RIGHT LOWER QUADRANT Indication: pain at mcburney's point Comparison: None. Findings: Ultrasound images right lower quadrant demonstrate a blind-ending loop of bowel consistent appendix, that measures 11 mm in thickness. IMPRESSION: Ultrasound images demonstrate abnormally thickened appendix. This is suspicious for acute appendicitis. If patient clinically has acute appendicitis, no more imaging is recommended. If there is some clinical question, CT abdomen pelvis with IV contrast is recommended. This was called by Dr. Boykin to SANTIAGO ROBLEDO on 12/20/2017 1:00 PM Report Dictated By: Carroll Boykin at 12/20/2017 1:00 PM Report E-Signed By: Carroll Boykin at 12/20/2017 1:11 PM WSN:[id number] ED Course/Re-evaluation Clinical Indication for ER IV: Hydration, IV Access ED Course 12/20/2017 11:31:08 am plan at this time will be to repeat blood work including CBC CMP pending some tests lipase C-reactive protein. We'll also order an ultrasound of the abdomen as patient just had a CT scan. Consider consult of general surgery prior to repeat CT scan of the abdomen and pelvis if required. Re-evaluation Case was discussed with the general surgeon Dr. Chow. She was made to admit the patient to the medicine floor and he will see the patient later this afternoon likely to OR this evening. Decision to Disposition Date: Dec 20, 2017 Decision to Disposition Time: 13:30 Depart Departure Latest Vital Signs Vital Signs Date Time Temp Pulse Resp B/P (MAP) Pulse Ox O2 Delivery O2 Flow Rate FiO2 12/20/17 12:41 68 99 12/20/17 12:30 106/81 (89) 12/20/17 11:01 98.8 20 Room Air Impression: Primary Impression: Acute appendicitis Condition: Improved Disposition: Admitted from ER (to DR Manrique) Referrals: CINDY REESE MD (PCP) Problem Qualifiers Primary Impression: Acute appendicitis Acute appendicitis type: with localized peritonitis Appendicitis gangrene presence: unspecified whether gangrene present Appendicitis perforation presence: unspecified whether perforation present Appendicitis abscess presence: unspecified whether abscess present Qualified Codes: K35.30 - Acute appendicitis with localized peritonitis, without perforation or gangrene SANTIAGO ROBLEDO MD Dec 20, 2017 11:31
[2017-12-20 11:35] LABS: PLATELET COUNT, AUTOMATED 380 K/uL (150-450)
--- NOTE | 2017-12-20 13:16 | RADIOLOGY IMAGING REPORT ---
FACILITY: [facility] [place] PATIENT NAME: Mary Jewell : 1980 MR: [id number] V: [id number] EXAM DATE: ORDERING PHYSICIAN: SANTIAGO ROBLEDO TECHNOLOGIST: Location: [facility] - [place] Patient: Mary Jewell : 1980 Visit/Account:[id number] Date of Sevice: 12/20/2017 RIGHT LOWER QUADRANT Indication: pain at mcburney's point Comparison: None. Findings: Ultrasound images right lower quadrant demonstrate a blind-ending loop of bowel consistent appendix, that measures 11 mm in thickness. IMPRESSION: Ultrasound images demonstrate abnormally thickened appendix. This is suspicious for acute appendicitis. If patient clinically has acute appendicitis, no more imaging is recommended. If there is some clinical question, CT abdomen pelvis with IV contrast is recommended. This was called by Dr. Boykin to SANTIAGO ROBLEDO on 12/20/2017 1:00 PM Report Dictated By: Carroll Boykin at 12/20/2017 1:00 PM Report E-Signed By: Carroll Boykin at 12/20/2017 1:11 PM WSN:[id number]
[2017-12-20] MEDS ORDERED: FAMOTIDINE 20 MG TAB PO ONE (13:55)
[2017-12-20] MEDS ORDERED: NORMOSOL R SOLN(*) 1000 ML BAG 1,000 ML IV ONE (14:00)
[2017-12-20] MEDS ORDERED: ONDANSETRON 4 MG/2 ML VIAL IVP PRN ×2 (14:10→17:35)
[2017-12-20] MEDS ORDERED: D5 1/2 NS(*) 1000 ML BAG 1,000 ML IV PRN ×2 (14:10→17:45)
[2017-12-20] MEDS ORDERED: NALOXONE HCL 0.4 MG/ML VIAL IVP PRN ×2 (14:40→17:35)
[2017-12-20] MEDS ORDERED: MORPHINE SULFATE 30 MG PCA IV PRN (14:40)
[2017-12-20] MEDS ORDERED: PIPERACILLIN/TAZO*3.375GM VIAL 3.375 GM in NS(*) 0.9% 100 ML ADDVANT BAG 100 ML IVPB SCH (15:00)
[2017-12-20] MEDS ORDERED: MIDAZOLAM 2 MG/2 ML VIAL ONE (16:35)
--- NOTE | 2017-12-20 16:35 | Gen Surgery History & Physical ---
History of Present Illness Chief Complaint RLQ abdominal pain History of Present Illness 37yo female presents with 2 day h/o RLQ abdominal pain with nausea and F/C but no emesis. No constipation or diarrhea. She came in to the ER yesterday where CT with mildly thickened portion of her appendix but apparently her evaluation wasn't convincingly c/w appendicitis show she was sent home with instructions to f/u today in ER for recheck. ER MD today concerned about appendicitis, U/S reveals thickened appendix. I was consulted and agreed to admit patient and discuss surgery with her. History Home Meds Reported Medications Multivitamin With Minerals (MULTIPLE VITAMIN) 1 Each Tablet, 1 EACH PO DAILY, TAB 06/30/17 Discontinued Reported Medications Tramadol Hcl (TRAMADOL HCL) 50 Mg Tablet, 50-100 MG PO Q4-6H, TAB 07/10/17 Amoxicillin/Pot Clav 875-125 Mg Tab (AUGMENTIN 875-125 TABLET) 1 Each Tablet, 1 TAB PO Q12H, TAB 07/10/17 Discontinued Scripts Diazepam (VALIUM) 5 Mg Tablet, 5 MG PO 2-3XD for vertigo, #10 TAB 0 Refills Prov:SANTIAGO ROBLEDO MD 07/10/17 Ibuprofen (IBUPROFEN) 800 Mg Tablet, 1 TAB PO Q8H, #30 TAB 0 Refills Take with food every 8 hours. Prov:CATRINA GREEN MD 07/07/17 Hydromorphone Hcl (HYDROMORPHONE HCL) 2 Mg Tablet, 2-4 MG PO Q4H for PAIN, #20 TAB 0 Refills Prov:CATRINA GREEN MD 07/07/17 Allergies: Coded Allergies: tramadol (Verified Allergy, Unknown, 12/20/17) Patient History: FH: breast cancer MATERNAL AUNT MATERNAL AUNT MATERNAL AUNT FH: heart disease MATERNAL GRANDFATHER FH: stroke MATERNAL GRANDFATHER Review of Systems All Systems Reviewed/Normal: Yes, Except as Noted Gastrointestinal: Nausea, Abdominal Pain Exam General Appearance: Alert, Awake, No Acute Distress, Afebrile Neuro: No Gross deficits Eyes: PERRLA GI: Other (Soft, RLQ TTP with focal peritoneal signs) Extremities: Warm, Perfused Psych: Alert & Oriented X3, Appropriate Mood & Affect Medical Decision Making Data Points Result Diagram: 12/20/17 1120 12/20/17 1120 Assessment and Plan Problems: (1) RLQ abdominal pain Status: Acute Assessment & Plan: 12/20/17: Exam and imaging concerning for early appendicitis. WBC normal without left shift. I have recommend exploratory laparoscopy with appendectomy. I have explained the surgery to her in great detail along with alternatives, risks, and expected recovery. She indicates her understanding of this discussion and her questions have been answered. She would like to proceed with this plan including surgery. Condition Stable. Time Spent: < 30 min Venous Thromboembolism VTE Risk Physician Assess for VTE Risk: Yes Patient's VTE Risk: Low VTE Diagnostic Test 2 Days Prior to Admit: No Antithrombotics Is Pt On Any Antithrombotics?: No CATRINA ALEJANDRE MD Dec 20, 2017 16:35
[2017-12-20] MEDS ORDERED: ROCURONIUM BROM 10 MG/ML 10 ML ONE (16:45)
[2017-12-20] MEDS ORDERED: KETOROLAC 30 MG/ML VIAL ONE (16:45)
[2017-12-20] MEDS ORDERED: PROPOFOL EMUL(*) 10MG/ML 20 ML 20 ML ONE (16:45)
[2017-12-20] MEDS ORDERED: SUCCINYLCHOL CHL 200MG/10ML VL ONE (16:45)
[2017-12-20] MEDS ORDERED: ONDANSETRON 4 MG/2 ML VIAL ONE (16:45)
[2017-12-20] MEDS ORDERED: DEXAMETHASONE SOD PHOS 10MG/ML ONE (16:45)
[2017-12-20] MEDS ORDERED: fentaNYL CITR 100 MCG/2 ML AMP ONE ×2 (16:52→17:42)
[2017-12-20] MEDS ORDERED: SUGAMMADEX SOD 500 MG/5 ML SDV ONE (17:10)
[2017-12-20] MEDS ORDERED: FLUSH 10 ML SYR IVP PRN (17:35)
--- NOTE | 2017-12-20 18:18 | Post Operative Progress Note ---
Post Operative Progress Note Date: Dec 20, 2017 Time: 17:47 Surgeon: Burton Dictation number: [id number] Anesthesia: GETA by Dr. Landin Pre-Op Diagnosis: RLQ abdominal pain Post-Op Diagnosis: NAYELY Findings: Somewhat thickened appendix, no purulence or gangrene Bloody fluid in pelvis Procedure(s): Diagnostic laparoscopy Lap appendectomy Specimen Removed:(May be N/A): Appendix Complications: None Fluids: See anesthesia record Estimated Blood Loss: Minimal Date OP Note Dictated: Dec 20, 2017 Time OP Note Dictated: 18:04 CATRINA ALEJANDRE MD Dec 20, 2017 18:18
[2017-12-20] MEDS: DOCUSATE SODIUM 100 MG CAP PO SCH (20:22)
[2017-12-20] MEDS: FAMOTIDINE 20 MG TAB PO SCH (20:22)
[2017-12-21 02:35] VITALS: BP 102/68
[2017-12-21] MEDS ORDERED: PER PO (06:56)
[2017-12-21] MEDS ORDERED: DOCU-202 PO (06:56)
--- NOTE | 2017-12-21 06:59 | Short(Outpt) Discharge Summary ---
Discharge Summary Reason for Hosp/Final Diag: (1) RLQ abdominal pain Status: Acute Hospital Course & Plan: 12/20/17: Exam and imaging concerning for early appendicitis. WBC normal without left shift. I have recommend exploratory laparoscopy with appendectomy. I have explained the surgery to her in great detail along with alternatives, risks, and expected recovery. She indicates her understanding of this discussion and her questions have been answered. She would like to proceed with this plan including surgery. 12/21/17: POD#1 s/p lap appy. Doing well. Will d/c to home this morning. Departure Discharge to: Home, Self Care Discharge Instructions Home Meds Active Scripts Oxycodone/Acetaminophen (OXYCODONE/ACETAMINOPHEN 5MG/325 MG) 5 Mg/325 Mg Tab, 1- 2 TAB PO Q4H PRN for MODERATE PAIN, #30 TAB 0 Refills Prov:CATRINA ALEJANDRE MD 12/21/17 Docusate Sodium (DOCUSATE SODIUM) 100 Mg Capsule, 1 CAP PO BID, #30 CAPSULE 0 Refills Prov:CATRINA ALEJANDRE MD 12/21/17 Reported Medications Multivitamin With Minerals (MULTIPLE VITAMIN) 1 Each Tablet, 1 EACH PO DAILY, TAB 06/30/17 Discontinued Reported Medications Tramadol Hcl (TRAMADOL HCL) 50 Mg Tablet, 50-100 MG PO Q4-6H, TAB 07/10/17 Amoxicillin/Pot Clav 875-125 Mg Tab (AUGMENTIN 875-125 TABLET) 1 Each Tablet, 1 TAB PO Q12H, TAB 07/10/17 Discontinued Scripts Diazepam (VALIUM) 5 Mg Tablet, 5 MG PO 2-3XD for vertigo, #10 TAB 0 Refills Prov:SANTIAGO ROBLEDO MD 07/10/17 Ibuprofen (IBUPROFEN) 800 Mg Tablet, 1 TAB PO Q8H, #30 TAB 0 Refills Take with food every 8 hours. Prov:CATRINA GREEN MD 07/07/17 Hydromorphone Hcl (HYDROMORPHONE HCL) 2 Mg Tablet, 2-4 MG PO Q4H for PAIN, #20 TAB 0 Refills Prov:CATRINA GREEN MD 07/07/17 Follow up Referrals: General Surgery - 01/03/18 @ Surgery, General with CATRINA ALEJANDRE MD You have a follow up appointment scheduled with Dr. Alejandre on 01/03/18, at 3:15pm. Diet: Regular Activity: As Tolerated Special Instructions: You may remove the white surgical dressings on 12/22/17, then you can shower. After showering, leave the incisions open to air but leave the steristrips in place until they fall off on their own. Do not immerse the incisions for 2 weeks. CATRINA ALEJANDRE MD Dec 21, 2017 06:59
[2017-12-21 07:11] VITALS: BP 96/57
--- NOTE | 2017-12-21 08:59 | OPERATIVE REPORT 1 ---
EVENT DATE: December 20, 2017 SURGEON: Rocael Manrique MD ANESTHESIOLOGIST: Davy Landin MD ANESTHESIA: General endotracheal. PREOPERATIVE DIAGNOSIS Right lower quadrant abdominal pain. POSTOPERATIVE DIAGNOSIS Right lower quadrant abdominal pain. PROCEDURE PERFORMED Diagnostic laparoscopy with laparoscopic appendectomy. COMPLICATIONS None. CONDITION Stable. ESTIMATED BLOOD LOSS Minimal. FINDINGS The patient had some bloody fluid in her pelvis. The appendix looked somewhat thickened, but there was certainly no obvious redness, purulence, gangrene, etc. INDICATIONS This is a 37-year-old female who presented to the emergency room yesterday with right lower quadrant pain that started 2 days ago. They checked some labs and her WBC was normal and a CT performed yesterday revealed a short segment of her appendix which appeared mildly thickened, but I guess they were not impressed by her exam or her laboratory evaluation and the CT was not convincing, and so they let her go home with a follow up today. Today, she continues to have right lower quadrant pain and so they rechecked her WBC which remains normal today and an ultrasound was completed which revealed a thickened appendix. They consulted me and I discussed with the patient performing a laparoscopy and removing her appendix and looking for other sources of her pain and she agreed to proceed with this. DESCRIPTION OF PROCEDURE The patient was brought to the operating room and placed supine on the operating table. General endotracheal anesthesia was administered and her abdomen was prepped and draped in the sterile fashion. A timout was completed and I injected the umbilical skin with 0.5% Ropivacaine plain and then made a vertical incision right in the base of her shallow flap at the umbilicus. I dissected to the dermis and then the subcutaneous fat. I identified the midline fascia, made a vertical incision in the midline facia and then bluntly entered the peritoneal cavity with my finger. I placed two interrupted 0 Vicryl sutures transversely through the vertical fascial defect and then inserted a 12 mm Etienne type port though this wound and secured it in place with sutures. I insufflated the abdomen to a pressure of 15 mmHg and inserted a 5 mm 30-degree angled scope though this port. Next, under direct visualization, I placed a suprapubic 5 mm port and a left lower quadrant 5 mm port. The patient was placed in Trendelenburg and planed towards her right. I inspected the gynecologic organs and she did have a large cyst on her right ovary and a smaller cyst on her left ovary. There was also bloody fluid anterior and posterior to the uterus and this was suctioned out. I inspected the appendix which was mildly thickened but no obvious gross inflammation, purulence, or gangrene. I divided the mesoappendix all the way down to the base of the appendix and then used an Endo- CAMILA stapler with the blue load and divided the base of the appendix flush with the cecum. The appendix was placed in a surgical specimen retrieval bag and removed from the abdomen through the umbilical port site. I irrigated and dried the right lower quadrant and there was some oozing from the staple line which I controlled with two 5 mm clips. It was all hemostatic at the completion of this case. I then reinspected the pelvis and I did not find any other evidence of pathology and I inspected the abdominal wall and the rest of her abdomen and found no other gross evidence of pathology. I then had the table flattened and removed the 5 mm ports, desufflated the abdomen and removed the camera, followed by the umbilical port and then placed another 0 Vicryl [id number] suture in the fascial defect at the umbilicus and tied all three of these down with good reapproximation of the fascial edges. I then closed the skin at each port site with 4-0 Monocryl subcuticular sutures. The skin was cleaned and dried and Steri-Strips were applied, followed by sterile surgical dressings. The patient was awakened and extubated in the operating room and transported to the recovery room in stable condition having tolerated the procedure without any apparent problems. DONNY
[2017-12-21] MEDS: FAMOTIDINE 20 MG TAB PO SCH (09:02)
[2017-12-21] MEDS: DOCUSATE SODIUM 100 MG CAP PO SCH (09:02)
[2017-12-21 09:59] VITALS: Ht 162.6 cm; Wt 65.9 kg
[2017-12-21 10:45] VITALS: BP 105/67
[2017-12-25] MEDS ORDERED: PER PO (14:04)
[2017-12-25] MEDS ORDERED: OXYC-854 PO (14:06)
[2017-12-26] MEDS ORDERED: OXYC-854 PO (09:03)
== END 2017-12-21 06:53 | disposition home or self-care (01) ==
LOC: ER 11:06 → INTOOBSV 12:51 → MED 12:51
PROVIDERS: ADMIT Surgery; ATTEND Surgery
DX: K35.30 Acute appendicitis with localized peritonitis, without perforation or gangrene (principal)
CPT/HCPCS: 44970; 76705; 81001; 83690; 84703; 85025; 86140; 86677; 88304; 96361; 96374; 96375; 96376; 99284; G0378; J0330; J1100; J1885; J2250; J2270; J2405; J2543; J2704; J3010; J7030; J7050; 82040; 82247; 82310; 82374; 82435; 82565; 82947; 84075; 84132; 84155; 84295; 84450; 84460; 84520